=== PATIENT | male | born 1995 | race Caucasian/White ===

== ENCOUNTER 2017-12-26 19:41 | Emergency (ER) | payer BC ==
[2017-12-26 19:51] VITALS: TEMP 97.7; O2SAT 96
--- NOTE | 2017-12-26 20:22 | EDPHY ---
H & P Stated Complaint: patient states he is cold Source: Patient, EMS Exam Limitations: No limitations - Personal History Current Tetanus Diphtheria and Acellular Pertussis (TDAP): Yes - Medical/Surgical History Hx Asthma: No Hx Chronic Respiratory Disease: No Hx Diabetes: No Hx Cardiac Disease: No Hx Renal Disease: No Hx Cirrhosis: No Hx Alcoholism: No Hx HIV/AIDS: No Hx Splenectomy or Spleen Trauma: No Other PMH: denies - Social History Smoking Status: Never smoked Time Seen by Provider: 12/26/17 19:49 HPI/ROS: HPI: This is a 22-year-old male who presents with Chief Complaint: patient states he is cold Location: body Quality: Feels cold Duration: Several hours Signs and Symptoms: No suicidal ideation, no homicidal ideation, no hallucinations, no fever, no cough, no chest pain, no shortness of breath, no nausea, no vomiting, no abdominal pain, no foot pain, no numbness Timing: Unknown Severity: Mild Context: Patient is generally healthy, lives in [place], presents via EMS as the bystander found patient walking barefoot in [place] in the snow. Patient reports that he lost his jacket containing his keys, wallet, cell phone. He is unsure of how he lost his shoes. He admits to taking a long hiking using some drugs earlier in the day but will not tell me what drug he ingested. Patient is sleepy but response all questions appropriately. Denies any previous psychiatric history like schizophrenia. Patient is ambulatory which she was on at the moment. Denies any foot pain. Patient reports that he has waxing his head as he does not like any hair on his head. He is studying Danish. Modifying Factors: None Comment: ROS: see HPI Constitutional: No fever, no chills, no weight loss Eyes: No blurred vision Respiratory: No shortness of breath, no cough Cardiovascular: No chest pain Gastrointestinal: No nausea, no vomiting, no diarrhea Genitourinary: No dysuria Extremities: No myalgias Neurologic: No weakness, no numbness Skin: No rashes Hematologic: No bruising, no bleeding MEDICAL/SURGICAL/SOCIAL HISTORY: Medical history: Generally healthy. Does not take any regular medications. Surgical history: Denies Social history: Lives in [place]. Family history noncontributory. CONSTITUTIONAL: Well-developed, well-nourished adult white male who is sleepy but wakes up with voice prompting and answers questions appropriately,, awake and alert, no obvious distress HEENT: Atraumatic and normocephalic, PERRL, EOMI. Tympanic membranes clear. Oropharynx clear, no exudate and moist pink mucosa. Airway patent. No lymphadenopathy. No meningismus. Cardiovascular: Normal S1/S2, regular rate, regular rhythm, without murmur rub or gallop. PULMONARY/CHEST: Symmetrical and nontender. Clear to auscultation bilaterally. Good air movement. No accessory muscle usage. ABDOMEN: Soft, nondistended, nontender, no rebound, no guarding, no peritoneal signs, no masses or organomegaly. No CVAT. EXTREMITIES: 2/2 pulses, strength 5/5, no deformities, no clubbing, no cyanosis or edema. NEUROLOGICAL: no focal neuro deficits. GCS 15. Alert and oriented x4. SKIN: Warm and dry, no erythema. no rash. Good capillary refill. PSYCH: Good eye contact, no flight of ideas, organized thought process, good insight and judgment, no auditory and visual command hallucinations, no suicidal ideation with a plan, no homicidal ideation, not paranoid (Jaja Truong) Constitutional: Initial Vital Signs Temperature (C) 36.5 C 12/26/17 19:50 Heart Rate 83 12/26/17 19:50 Respiratory Rate 18 12/26/17 19:50 Blood Pressure 113/84 H 12/26/17 19:50 O2 Sat (%) 96 12/26/17 19:50 O2 Delivery Mode Room Air Allergies/Adverse Reactions: No Known Allergies Allergy (Unverified 12/26/17 19:52) Home Medications: Medication Instructions Recorded NK [No Known Home Meds] 12/26/17 Medical Decision Making ED Course/Re-evaluation: No neurological deficits. No hyperthermia. Vital signs stable upon arrival. Does not meet M1 Hold or Detainer. Patient is currently under the influence of some drugs unsure of what it is. Monitored for a bit. Perform road tested no ataxia. Bus pass given. This patient was seen under the supervision of my secondary supervising physician. I evaluated care for this patient independently. (Jaja Truong) The patient was evaluated and managed by the physician casting assistant. I have reviewed this chart and I agree with the findings and plan of care as documented , as indicated by my signature. I am the secondary supervising physician. ( Jojo Rice) Differential Diagnosis: Differential diagnosis includes but is not limited to hypothermia, schizophrenia , electrolyte imbalance, sepsis, drug use. (Jaja Truong) Departure - Departure Disposition: Home, Routine, Self-Care Clinical Impression: Drug use Condition: Good Instructions: Polysubstance Abuse (ED) Additional Instructions: Please refrain from using illegal drugs. Wear shoes while walking outside. Call 911 if you have thoughts of hurting or killing yourself or anyone else, or have any new or worsening symptoms that concern you. Referrals: [facility],. [Clinic] - As per Instructions
[2017-12-26 20:47] VITALS: BP 122/69; PULSE 88; RESP 16
== END 2017-12-26 20:48 | disposition home or self-care (01) ==
LOC: EDUNIT#
DX: F19.90 Other psychoactive substance use, unspecified, uncomplicated (principal)

== ENCOUNTER 2019-03-19 09:48 | Emergency (ER) | payer BC ==
[2019-03-19] MEDS ORDERED: ONDANSETRON DISINTEGRATING 4 MG TAB PO ONE (09:54)
[2019-03-19] MEDS ORDERED: ACETAMINOPHEN 500 MG TAB PO ONE (09:54)
--- NOTE | 2019-03-19 10:49 | EDPHY ---
General Time Seen by Provider: 03/19/19 10:49 Narrative: CLINICAL IMPRESSION: Nausea and vomiting ASSESSMENT/PLAN: Patient is a 23-year-old male with no significant medical history presents to the emergency department with acute nausea and vomiting after heavy drinking last evening. Patient is well-appearing, no acute distress. His abdomen is soft, I am unable to elicit any tenderness to palpation. His vital signs reviewed, no findings to suggest sepsis. Laboratory studies were obtained, mild leukocytosis which I suspect is reactive as symptoms came on suddenly after heavy drinking. No findings to suggest severe dehydration, electrolyte abnormality, bacterial illness or acute intra-abdominal process. History of physical examination is consistent with nausea and vomiting likely secondary to alcohol use. I suspect his headache is secondary to vomiting and mild dehydration. He has had headaches like this before, it has been gradual in onset, I do not suspect other etiologies to include TBI, SAH or ICH. Patient was given IV fluids and antiemetic with improvement of his symptoms in the emergency department. He was able to tolerate p.o.. On repeat exam he is well- appearing, abdomen soft and nontender, headache improved. Referral provided for PCP, return precautions discussed. DIFFERENTIAL DX: Nausea and vomiting including but not limited to gastroenteritis, gastritis, appendicitis, and medication side effect. ED COURSE: 1058: On repeat exam the patient is comfortable appearing, he reports mild nausea and mild headache 1215: Patient reports continued improvement, able to tolerate PO. Case discussed with Dr. Saucedo. CHIEF COMPLAINT: Nausea and vomiting HPI: Patient is a 23-year-old male with no significant medical history who presents to the emergency department with multiple episodes of emesis since heavy drinking last evening. Patient reports he drank about 7 beers and then an unknown amount of whiskey. He did have emesis through the night, went to sleep and then woke up this morning still feeling nauseous with multiple episodes of emesis. Endorses mild generalized AVILA and decreased appetite. He denies any dizziness, chest pain or shortness of breath. He does endorse some abdominal discomfort which he attributes to multiple episodes of emesis. He denies any hematemesis. He denies any urinary symptoms, bowel movements have been regular and normal. Patient denies any illicit drug use. PMH: Denies Family History: Not contributory Social History: Occasional ETOH, denies drugs or smoking REVIEW OF SYSTEMS: All other systems negative Constitutional: No fever, no chills, appetite change. Eyes: No discharge, vision change ENT: No sore throat, congestion, ear pain. Cardiovascular: No chest pain, no palpitations. Respiratory: No cough, no shortness of breath. Gastrointestinal: No abdominal pain, no vomiting, diarrhea. Genitourinary: No hematuria, dysuria, flank pain. Musculoskeletal: No back pain, joint swelling, joint pain, myalgias. Skin: No rashes, color change. Neurological: No headache, dizziness, weakness. PHYSICAL EXAM: General Appearance: Well-appearing, no acute distress and not toxic-appearing. HENT: Normocephalic, atraumatic. Bilateral external ears are normal. Bilateral tympanic membranes are normal with pearly [place] reflex. Nares are clear, mucosa is pink. Oropharynx is clear, mucous membranes are mildly dry, uvula is midline. There is no tonsillar enlargement or exudate. The dentition is normal. Eyes: PERRLA, no acute vision change, nystagmus, swelling, discharge, pain or photosensitivity. Conjunctiva pink, no pallor or injection Neck: Supple, nontender, no lymphadenopathy, no midline pain, FROM, no meningismus. Respiratory: There are no retractions, lungs are clear to auscultation. Cardiac: Regular rate and rhythm, no murmurs or gallops. Gastrointestinal: Abdomen is soft, bowel sounds normal. I am unable to elicit any tenderness to palpation. No masses/hernia, no rigidity, guarding or focal peritoneal findings. Neurological: Alert and oriented x 3, CN 2-12 grossly intact, normal sensation and strength Skin: Warm, dry, no rashes, no nodules on palpation. Musculoskeletal: Extremities are symmetrical, full range of motion, no tenderness, deformity, swelling, or erythema. Psychiatric: Mood and affect are normal, there is no agitation. MEDICAL DECISION MAKING: Patient was seen independently. Secondary supervising physician at time of evaluation was Dr. Saucedo, she did not evaluate this patient. Diagnosis: Nausea and vomiting. Summary: See Assessment and Plan for summary of ED visit Clinical lab tests: ordered / reviewed. Decision to obtain medical records or history from someone other than the patient: No Review / Summarize previous medical records: Yes Discussed patient with another provider: Yes, Dr. Saucedo Patient Progress: Stable discharge. - History Smoking Status: Current some day smoker - Objective Vital Signs: Initial Vital Signs Temperature (C) 36.7 C 03/19/19 09:52 Heart Rate 85 03/19/19 09:52 Respiratory Rate 22 H 03/19/19 09:52 Blood Pressure 123/80 H 03/19/19 09:52 O2 Sat (%) 96 03/19/19 09:52 O2 Delivery Mode Room Air Allergies/Adverse Reactions: No Known Allergies Allergy (Unverified 12/26/17 19:52) Home Medications: Medication Instructions Recorded NK [No Known Home Meds] 12/26/17 Laboratory Results: Laboratory Results 03/19/19 10:35 03/19/19 10:35 Medications Given: Discontinued Medications Acetaminophen (Tylenol) 1,000 mg PO EDNOW ONE Stop: 03/19/19 09:55 Last Admin: 03/19/19 09:56 Dose: 1,000 mg Ketorolac Tromethamine (Toradol) 30 mg IVP EDNOW ONE Stop: 03/19/19 11:51 Last Admin: 03/19/19 12:19 Dose: 30 mg Ondansetron HCl (Zofran Odt) 4 mg PO EDNOW ONE Stop: 03/19/19 09:55 Last Admin: 03/19/19 09:56 Dose: 4 mg Ondansetron HCl (Zofran) 4 mg IVP Q4 PRN PRN Reason: Nausea/Vomiting, Can't Take PO Stop: 09/15/19 10:57 Last Admin: 03/19/19 12:19 Dose: 4 mg Departure - Departure Disposition: Home, Routine, Self-Care Clinical Impression: Nausea and vomiting Condition: Good Instructions: Acute Nausea and Vomiting (ED) Additional Instructions: DISCHARGE INSTRUCTIONS FROM YOUR PROVIDER Thank you for visiting our emergency department today. Please avoid heavy alcohol use, it is very dangerous to your health and safety. Rest, push non-diuretic, non-caffeinated fluids, clear liquid diet, then a BRAT diet (bananas, rice, applesauce, toast), then slowly advance diet to normal. Attempt small frequent meals. Schedule a follow-up appointment with your primary care physician in the next 1- 2 days for re-evaluation. Bring a copy of your test results with you to that appointment. Return for increased or unmanageable pain, new site or character of pain, flank pain, groin pain, pelvic pain, development of fever, chills, recurrent vomiting , vomiting blood or coffee grounds, diarrhea, constipation, bloody stools, black tarry stools, burning or pain with urination, bloody urine, inability to urinate, decreased urine output or other signs of dehydration, dizziness, weakness, fainting, difficulty breathing or swallowing, chest pain, or for any other new, worsening or worrisome symptoms. Seek immediate medical attention for seizures, confusion, uncontrolled vomiting , vomiting blood or other serious concerns People present with illnesses and injuries in different ways, and it is always possible that we have missed something. Again, thank you for choosing our emergency department. We hope that you feel better. Referrals: Natalio Rosas MD [Medical Doctor] - As per Instructions (Please establish care with a primary care provider if you not done so.)
[2019-03-19] MEDS ORDERED: ONDANSETRON 4 MG/2 ML VIAL IVP PRN (10:58)
[2019-03-19 11:11] LABS: PLATELET COUNT 261 10^3/uL (150-400)
[2019-03-19] MEDS ORDERED: KETOROLAC 30 MG/1 ML SDV IVP ONE (11:50)
[2019-03-19 12:38] VITALS: BP 129/79
== END 2019-03-19 12:40 | disposition home or self-care (01) ==
DX: R11.2 Nausea with vomiting, unspecified (principal)
CPT/HCPCS: 96374; J1885; J2405